=== PATIENT | male | born 1985 | race Caucasian/White ===

== ENCOUNTER 2024-03-04 04:29 | Observation (INO) | payer BC, SELFPAY ==
[2024-03-04] VITALS (29 sets, daily range): BP systolic 104–157; BP diastolic 54–97; PULSE 57–81; RESP 16–18; TEMP 36.7–37.1; O2SAT 91–99; BMI 32.3; BMI 31.7
--- NOTE | 2024-03-04 04:44 | CRLHL7_ITS ---
For Patients: As a result of the Century Cures Act, medical imaging exams and procedure reports are released immediately into your electronic medical record. You may view this report before your referring provider. If you have questions, please contact your health care provider. Indication: Ataxia, altered mental status. Technique: Noncontrast CT of head was performed. Comparison: None available. Findings: Brain parenchyma: Normal clifton-white matter differentiation. No acute intraparenchymal hemorrhage. No mass effect or midline shift. Extra-axial spaces: No extra-axial collection. Ventricular system: Unremarkable for age. Paranasal sinuses and mastoid air cells: Polyps versus mucous retention cysts within the maxillary sinuses. Otherwise clear. Orbits: Unremarkable. Bones: No calvarial fracture. Impression: No acute intracranial abnormality identified. Please note that all CT scans at this facility use dose modulation, iterative reconstruction, and/or weight-based dosing when appropriate to reduce radiation dose to as low as reasonably achievable. Dictated by Emiliana Rangel MD @ 03/04/2024 5:19:08 AM (Electronically Signed)
--- NOTE | 2024-03-04 05:08 | ED.GENADULT ---
HPI - General Adult General Chief complaint: Unspecified Complaint, Adult Stated complaint: jaw pain, feeling uncoordinated Time Seen by Provider: 03/04/24 04:32 Source: patient Mode of arrival: ambulatory Limitations: no limitations History of Present Illness HPI narrative: 39-year-old male presents the emergency department for evaluation of abnormal movements, jaw pain. Patient reports that he was diagnosed with a dental infection about 10 days ago, was prescribed amoxicillin for this and was referred to see a dentist. Review of records show that he was probably prescribed actually penicillin but he reports that he did take all of this. He completed the antibiotic without difficulty. He still had a little bit of pain in the right jaw but today at about 415 he had sudden onset of severe pain in the jaw area and has had difficulty moving his arms and legs since. This was just prior to arrival. His boss brings him into the ED. He says that it is difficult to move his arms and legs. They seem to be moving somewhat on their own. Reports some double vision on specific questioning. No recent fever, no new trauma. No cardiac, respiratory or GI changes. No history of prior neurological problems. Denies alcohol or drug intake in the last few days. Does admit to doing some speed over the weekend but has felt normal ever since until earlier this morning. He has a history of vitiligo but no other autoimmune disease. No history of hypothyroidism. No prior history of similar symptoms. Denies difficulty with speech or thinking. Still has the right jaw pain. States that his past medical history is benign, no inter long-term health problems. No prescription medications, allergy to clindamycin. ROS is notable for the neurological changes and HEENT symptoms as described above, otherwise denies times 12 systems. Related Data Home Medications ?Medication ?Instructions ?Recorded ?Confirmed No Known Home Medications 03/04/24 03/04/24 Allergies Allergy/AdvReac Type Severity Reaction Status Date / Time clindamycin Allergy Unknown Verified 03/04/24 04:44 [facility] Medical History Bipolar II disorder ?F31.81 - Bipolar II disorder (ICD-10) Social History Smoking Status: Current every day smoker What tobacco products do you use: cigarettes Smoking packs per day: 0.3 Smoking cigarettes per day: 6.0 Second hand tobacco smoke exposure: No How often do you have a drink containing alcohol: never AUDIT-C Alcohol total score: 0 Non-prescribed substance use: other Non-prescribed substance use details: Speed service: No Exam Const: Vital Signs, click to edit/add: Vital Signs - 24 hr 03/04/24 04:39 03/04/24 05:45 03/04/24 05:46 Temperature 98.1 F Pulse Rate 73 69 Pulse Rate [Left P ulse Oximeter] 78 Respiratory Rate 16 Blood Pressure 148/84 H Blood Pressure [Ri ght Upper Arm] 136/97 H Pulse Oximetry 98 98 Oxygen Delivery Me od Room Air 03/04/24 05:51 03/04/24 06:00 03/04/24 06:02 Temperature Pulse Rate 76 77 77 Pulse Rate [Left P ulse Oximeter] Respiratory Rate Blood Pressure 147/82 H 131/80 Blood Pressure [Ri ght Upper Arm] Pulse Oximetry 95 95 96 Oxygen Delivery Me thod 03/04/24 06:12 03/04/24 06:17 03/04/24 06:23 Temperature Pulse Rate 76 77 81 Pulse Rate [Left P ulse Oximeter] Respiratory Rate Blood Pressure 134/82 132/93 H Blood Pressure [Ri ght Upper Arm] Pulse Oximetry 98 97 98 Oxygen Delivery Me thod 03/04/24 06:30 03/04/24 06:32 03/04/24 06:42 Temperature Pulse Rate 74 79 Pulse Rate [Left P ulse Oximeter] Respiratory Rate Blood Pressure 130/54 L 134/64 Blood Pressure [Ri ght Upper Arm] Pulse Oximetry 96 97 Oxygen Delivery Me thod 03/04/24 06:45 03/04/24 06:52 03/04/24 07:00 Temperature Pulse Rate 69 65 66 Pulse Rate [Left P ulse Oximeter] Respiratory Rate Blood Pressure 120/73 Blood Pressure [Ri ght Upper Arm] Pulse Oximetry 96 94 97 Oxygen Delivery Me thod 03/04/24 07:02 03/04/24 07:12 03/04/24 07:15 Temperature Pulse Rate 65 68 67 Pulse Rate [Left P ulse Oximeter] Respiratory Rate Blood Pressure 127/75 104/73 Blood Pressure [Ri ght Upper Arm] Pulse Oximetry 96 97 96 Oxygen Delivery Me thod 03/04/24 07:22 03/04/24 07:30 Temperature Pulse Rate 68 69 Pulse Rate [Left P ulse Oximeter] Respiratory Rate Blood Pressure 157/74 H Blood Pressure [Ri ght Upper Arm] Pulse Oximetry 98 97 Oxygen Delivery In thod Documenting provider has reviewed patient's vital signs: yes Common normals: oriented x3 Other: Mildly anxious but appropriate. Oriented to person place and situation well. Appears well nourished and well hydrated, not intoxicated. HENMT: Common normals: normocephalic and head/scalp atraumatic Head and scalp: normocephalic and atraumatic Face and sinus: normal facial exam Other: Poor dentition with several missing teeth but no obvious signs of large abscess, broken tooth in the area of question. No unusual drainage. Can open and close the jaw normally with no trismus. Posterior palate normal in appearance, tonsillar pillars normal with no exudate or drainage. Normal tongue and do the mucosa Eye: Other: Pupils are size constricted bilaterally but they do react and accommodate to light. Normal extraocular movements. Neck & C-Spine: Common normals: full ROM and no lymphadenopathy Resp: Common normals: normal respiratory effort, no use of accessory muscles and clear to auscultation bilaterally Effort & inspection: able to speak in complete sentences Auscultation: clear to auscultation bilaterally Cardio: Common normals: regular rate, regular rhythm, S1 normal heart sound, S2 normal heart sound and no murmurs Rate: regular rate Rhythm: regular rhythm Heart sounds: S1 normal and S2 normal GI: Common normals: Normal to inspection, nondistended, normoactive bowel sounds present, soft to palpation, non-tender, no hepatosplenomegaly and no masses Palpation: soft and no hepatosplenomegaly Extremity: Common normals: normal to inspection and normal capillary refill Neuro: Common normals: oriented x3 and CN's II-XII intact bilaterally Other: Ataxic movements of both upper and lower extremities, symmetric bilaterally. Some non intentional movement of the upper extremities but not of the lower. There is also some ataxic movement of the face but not spontaneous, just when he tries to make purposeful movement. With some effort, he can over ride this and perform tasks on demand but with poor strength due to return of ataxic movements frequently this does seem amplified in the lower extremities compared to the upper. Psych: Common normals: speech normal Appearance: grossly normal Speech: normal speech Thought content: normal thought content Attention/concentration: attention grossly intact Memory/cognition: memory grossly intact Insight: insight good Judgement: judgment good Skin: Narrative: Vitiligo but no open sores or wounds. Vitiligo does concentrate on the hands. Course Course ED Course: 39-year-old male with sudden onset of bilateral upper and lower extremity ataxia, also facial, just prior to arrival. Very unusual presentation, concerning for small stroke. Recent dental infection, uncertain of clinical significance but is having some jaw pain with this. Will start with the urgent head CT to look for bleeds, mass or a signs of trauma. Urgent Neuro consult. Place peripheral IV. Typical labs, await findings. Reevaluation(s) Time of Reevaluation #1: 05:24 Reevaluation #1: Spoke with Dr. Francisco from Neurology. He shares my concern that there seems to be something unusual going on here. He is recommended that we get a CT angiogram. I will have the images pushed to [employer]. He will review these and then call back with further recommendations. We are in window for thrombolytics at this is indicated. Patient has had no change in symptoms thus far. Time of Reevaluation #2: 06:21 Reevaluation #2: I last checked on the patient about 40 minutes ago, and at that time his symptoms were fairly stable. I spoke with Neurology again and he recommended a telehealth assessment. When I went back into the patient's room to tell him about what to expect with this, he reported to me that he was already starting to feel better and this had just started happening within the last few minutes. His speech is still a little strained and slightly dysarthric. But he is noticing that there is now some tingling in the left leg but he has better movement. The right leg and hand seem harder to move than baseline but much improved from earlier and the spontaneous movements have ceased. Telehealth assessment was performed. Visual ch were normal, movement was still a little difficult but no obvious pronator drift. Strength in the lower legs much improved compared to initial assessment. I spoke with Neurology than on the phone following the telehealth exam, he is recommending an MRI with and without contrast of the head and neck. He is uncertain at this time if the patient has had a stroke or if this is more related to a drug event. He is not recommending any thrombolytics at this time. I will give aspirin 325 p.o. x1. Time of Reevaluation #3: 07:38 Reevaluation #3: Patient accepted for admission to observation from day hospitalist. Patient will receive MRI with and without contrast per neurology request. Hospitalist will then touch base with Neurology team on further plan. Patient continues to have improvement of neurological changes, stable vitals. Vital Signs Vital signs: Initial Vital Signs Temperature 98.1 F 03/04/24 04:39 Temperature Source Temporal Artery Scan 03/04/24 04:39 Pulse Rate 78 03/04/24 04:39 Pulse Rhythm Regular 03/04/24 04:39 Respiratory Rate 16 03/04/24 04:39 Blood Pressure 136/97 H 03/04/24 04:39 Blood Pressure Mean 110 H 03/04/24 04:39 Blood Pressure Position Semi-Fowlers 03/04/24 04:39 Pulse Oximetry 98 03/04/24 04:39 Oxygen Delivery Method Room Air 03/04/24 04:39 Vital Signs Temperature 98.1 F 03/04/24 04:39 Pulse Rate 78 03/04/24 04:39 Respiratory Rate 16 03/04/24 04:39 Blood Pressure 136/97 H 03/04/24 04:39 Pulse Oximetry 98 03/04/24 04:39 Oxygen Delivery Method Room Air 03/04/24 04:39 Temperature 98.1 F 03/04/24 04:39 Pulse Rate 69 03/04/24 07:30 Respiratory Rate 16 03/04/24 04:39 Blood Pressure 157/74 H 03/04/24 07:22 Pulse Oximetry 97 03/04/24 07:30 Oxygen Delivery Method Room Air 03/04/24 04:39 Medications Administered Medications: Discontinued Medications Generic Name Dose Route Start Last Admin Trade Name Freq PRN Reason Stop Dose Admin Aspirin 324 mg 03/04/24 06:24 03/04/24 06:43 Aspirin 81 Mg Tab.Chew PO 03/04/24 06:25 324 mg ONCE ONE Administration Sodium Chloride 1,000 mls @ 1,000 mls/hr 03/04/24 05:04 03/04/24 06:43 0.9 % Sodium Chloride 1000 Ml IV 03/04/24 06:03 1,000 mls/hr .Q1H LORETTA Administration Medical Decision Making Lab Data Lab results reviewed: Yes I reviewed the patient's lab results Lab results narrative: Labs overall very reassuring. Not surprised by the amphetamines and methamphetamines in his urine which he did previously admitted to. Labs: Lab Results 03/04/24 03/04/24 Range/Units 05:10 07:20 WBC 9.66 (4.50-11.00) K/uL RBC 5.11 (4.30-5.90) m/uL Hgb 15.2 (13.5-17.5) gm/dL Hct 43.2 (37.0-53.0) % MCV 85 (80-100) fL MCH 30 (26-34) pg MCHC 35 (32-36) gm/dL RDW Coeff of Domenica 13.1 (11.5-15.5) % Plt Count 409 (140-440) K/uL Neut % (Auto) 43.1 (42.0-72.0) % Lymph % (Auto) 44.3 H (20-44) % [place] % (Auto) 9.0 (0.0-11.0) % Eos % (Auto) 2.5 (0.0-7.0) % Baso % (Auto) 1.0 (0.0-3.0) % Neut # (Auto) 4.16 (1.7-7.0) K/uL Lymph # (Auto) 4.30 H (0.90-2.90) K/uL [place] # (Auto) 0.90 (0.00-0.90) K/UL Eos # (Auto) 0.24 (0.00-0.50) K/uL Baso # (Auto) 0.10 (0.00-0.30) K/uL Abs Immat Gran (auto) 0.01 (0.00-0.30) K/uL Imm/Tot Granulo (auto) 0.1 % Sodium 136 (135-149) mmol/L Potassium 3.4 L (3.6-5.1) mmol/L Chloride 105 (96-114) mmol/L Carbon Dioxide 17 L (20-32) mmol/L Anion Gap 14 (7-15) mEq/L BUN 15 (5-24) mg/dL Creatinine 0.6 (0.5-1.5) mg/dL Estimated Creat Clear 168.98 Estimated GFR 125 ml/min Glucose 98 (60-115) mg/dL Lactate 3.8 H (0.5-1.9) mmol/L Calcium 10.0 (8.4-10.6) mg/dL Total Bilirubin 0.7 (0.1-1.5) mg/dL AST 39 H (12-35) U/L ALT 40 (4-50) U/L Alkaline Phosphatase 63 (40-150) U/L Ammonia 9.0 L (13.1-30.0) umol/L C-Reactive Protein < 0.5 L (0.5-1.0) mg/dL Total Protein 7.9 (6.0-8.3) g/dL Albumin 5.0 (3.3-5.0) g/dL Procalcitonin 0.05 (<0.50) ng/mL Urine Color Yellow (Yellow) Urine Appearance Clear (Clear) Urine pH 7.0 (5.0-8.5) Ur Specific [place] 1.010 (1.000-1.030) Urine Protein Negative (Negative) Urine Glucose (UA) Negative (Negative) Urine Ketones Negative (Negative) Urine Blood Negative (Negative) Urine Nitrite Negative (Negative) Urine Bilirubin Negative (Negative) Urine Urobilinogen 0.2 (0.2-1.0) Ur Leukocyte Esterase Negative (Negative) Urine Opiates Screen Negative (Negative) Ur Oxycodone Screen Negative (Negative) Urine Methadone Screen Negative (Negative) Ur Barbiturates Screen Negative (Negative) U Tricyclic Antidepress Negative (Negative) Ur Phencyclidine Scrn Negative (Negative) Ur Amphetamines Screen POSITIVE A (Negative) U Methamphetamines Scrn POSITIVE A (Negative) U Benzodiazepines Scrn Negative (Negative) Urine Cocaine Screen Negative (Negative) U Marijuana (THC) Screen Negative (Negative) Ur Drug Screen Comment See Note Ethyl Alcohol < 0.01 L (0.01-0.03) % Imaging Data CT scan - head: Attestation: I have reviewed the pertinent imaging results. My impression: No bleed, mass or skull fracture. Normal head CT Radiologist's impression: Impression: No acute intracranial abnormality identified. Please note that all CT scans at this facility use dose modulation, iterative reconstruction, and/or weight-based dosing when appropriate to reduce radiation dose to as low as reasonably achievable. Dictated by Emiliana Rangel MD @ 03/04/2024 5:19:[address] angio head and neck: Attestation: I have reviewed the pertinent imaging results. Radiologist's impression: Findings CTA Neck: No hemodynamically significant stenosis, occlusion or dissection. CTA Head: No hemodynamically significant large vessel stenosis or occlusion. No aneurysm. Discharge Plan Discharge Clinical Impression: Cerebrovascular accident (CVA) involving posterior circulation Patient Disposition: Admitted As Observation Condition: Stable
[2024-03-04 05:19] LABS: Lactate* 3.8 mmol/L (0.5-1.9)
[2024-03-04 05:20] LABS: Eosinophils Absolute Auto 0.24 K/uL (0.00-0.50); Eosinophils Percent Auto 2.5 % (0.0-7.0); Hematocrit 43.2 % (37.0-53.0); Hemoglobin* 15.2 gm/dL (13.5-17.5); Immature Granulocytes Abs Auto 0.01 K/uL (0.00-0.30); Immature Granulocytes Pct Auto 0.1 %; Lymphocytes Percent Auto 44.3 % (20-44); Mean Corpuscular HGB Conc 35 gm/dL (32-36); Mean Corpuscular Hemoglobin 30 pg (26-34); Mean Corpuscular Volume 85 fL (80-100); Neutrophils Absolute Auto 4.16 K/uL (1.7-7.0); Neutrophils Percent Auto 43.1 % (42.0-72.0); Platelet Count* 409 K/uL (140-440); RDW Coefficient of Variation % 13.1 % (11.5-15.5); Red Blood Count 5.11 m/uL (4.30-5.90); White Blood Count* 9.66 K/uL (4.50-11.00)
[2024-03-04 05:21] LABS: Slide Review Reflex No
--- NOTE | 2024-03-04 05:25 | CRLHL7_ITS ---
For Patients: As a result of the Century Cures Act, medical imaging exams and procedure reports are released immediately into your electronic medical record. You may view this report before your referring provider. If you have questions, please contact your health care provider. CLINICAL HISTORY: Ataxia. TECHNIQUE: Standard helical CT image acquisition through the head following the administration of intravenous contrast was performed. 3D and MIP reconstructions were performed at a separate workstation and permanently archived. COMPARISON: None available. FINDINGS: No intracranial proximal large vessel occlusion or flow-limiting luminal stenosis. No evidence of cerebral aneurysm. No findings to suggest an arterial venous shunting lesion. The major dural venous sinuses and deep venous system are patent. IMPRESSION: No intracranial proximal large vessel occlusion, flow-limiting luminal stenosis, or cerebral aneurysm. Please note that all CT scans at this facility use dose modulation, iterative reconstruction, and/or weight-based dosing when appropriate to reduce radiation dose to as low as reasonably achievable. Dictated by Spencer Gonzalez MD @ 03/04/2024 3:21:13 PM (Electronically Signed)
--- OUTSIDE RECORDS SUMMARY | 2024-03-04 05:26 | XMS_ITS ---
Author Organization [facility] Address [address] [place] [address] Care Team Providers Care Senior Software Development Engineer Name Role Phone Unavailable Unavailable Unavailable Surgery Details Not on file Complications Check Surgery Details section. Procedure Estimated Blood Loss Check Surgery Details section. Procedure Findings Check Surgery Details section. Procedure Specimens Taken Check Surgery Details section.
--- OUTSIDE RECORDS SUMMARY | 2024-03-04 05:26 | XMS_ITS | Clinical Summary ---
Author Organization [facility] [place], [place] [address] Care Team Providers Care Swatch Paster Name Role Phone Ken Richardson MD Primary Care Provider Allergies Active Allergy Reactions Criticality Noted Date Comments Clindamycin Diarrhea Medium 09/04/2006 Medications Medication Sig Dispensed Refills Start Date End Date Status cyclobenzaprine (FLEXERIL) 10 mg tabletIndications:S pasm 1/2 to 1 tab at bedtime for muscle spasms 30 Tablet 11 07/31/2021 Active penicillin v potassium (PEN-VEE K) 500 mg tabletIndications:P ain, dental Take 1 Tablet (500 mg) by mouth four times daily before meals and at bedtime for 10 days. 40 Tablet 02/16/2024 02/26/2024 Active Problems Problem Noted Date Diagnosed Date Bipolar II disorder 03/15/2022 Tobacco use disorder 09/07/2008 Encounters Date Type Department Care Team Description 02/16/2024 4:20 AM CDT - 02/16/2024 4:41 AM CDT Emergency [facility] [address] [place] [address] Chris Duran MD Pain, dental (Primary Dx) Discharge Disposition: Home Self Care 02/16/2024 Travel from Last 3 Months Immunizations Name Administration Dates Next Due COVID-19 VACCINE SPIKEVAX (M ODERNA 50MCG/0.5ML) 12YO+ PFS 05/10/2023 COVID-19 vaccine (Moderna 10 0mcg/0.5mL) PF, MDV 11/10/2020,09/29/2020 DTaP 01/28/1989,08/21/1985 HIB HbOC (HibTITER) 02/25/1986 Influenza, IIV4 05/10/2023,03/15/2022 MMR 10/08/1996,04/30/1985 Oral Polio Vaccine 01/28/1989,08/21/1985 Pneumococcal Conj 20-valent (Prevnar 20) 022 Td (Age >=7 Years) 10/08/1996 Tdap 03/15/2022,11/09/2011,06/24/2004 Family History Medical History Relation Name Comments Good Health Brother Leukemia Daughter Good Health Father Cancer Maternal Grandfather bone ca ncer Good Health Mother Diabetes Paternal Grandfather Good Health Sister 1 Good Health Sister 2 Relation Name Status Comments Brother Daughter Alive Father Alive Maternal Grandfather Mother Alive Paternal Grandfather Sister 1 Sister 2 Social History Tobacco Use Types Packs/Day Years Used Date Smoking Tobacco: Every Day Cigarettes 0.3 10 Smokeless Tobacco: Never Tobacco Cessation:Ready to Q uit: Not Asked; Counseling Given: Not Answered Comments:ATQ. 09/2020: Smokes 1/2-1 ppd. Alcohol Use Standard Drinks/Week Comments Not Currently 0 (1 standard drink = 0.6 oz pur e alcohol) PHQ-2 Answer Date Recorded PHQ-2 TOTAL SCORE 0 10/02/2022 Social Connections Answer Date Recorded Frequency of Communication with Friends and Fami ly Not on file 10/22/2022 Financial Resource Strain Answer Date R ecorded Difficulty of Paying Living Expenses 3 10/18/2021 Difficulty of Paying Living Expenses Not on file 10/18/2021 Food Insecurity Answer Date Recorded Worried About Running Out of Food in the Last Ye ar 1 10/18/2021 Transportation Needs Answer Date Record ed Lack of Transportation (Medical) 1 10/18/2021 Housing Stability Answer Date Recorded Unable to Pay for Housing in the Last Year 1 10/18/2021 Sex and Gender Information Value Date Recorded Sex Assigned at Not on file Gender Identity Not on file Sexual Orientation Not on file Obstetrics History Last Filed Vital Signs Vital Sign Reading Time Taken Comments Blood Pressure 144/100 02/16/2024 4:20 AM CDT Pulse 90 02/16/2024 4:20 AM CDT Temperature 36.7 ??C (98.1 ??F) 02/16/2024 4:20 AM CD T Respiratory Rate 18 02/16/2024 4:20 AM CDT Oxygen Saturation 98% 02/16/2024 4:20 AM CDT Inhaled Oxygen Concentration - - Weight 102.1 kg (225 lb) 02/16/2024 4:19 AM CDT Height 177.8 cm (5' 10) 02/16/2024 4:19 AM CDT Body Mass Index 32.28 02/16/2024 4:19 AM CDT Plan of Treatment Health Maintenance Due Date Last Done Comments Depression screening for age 12+ 10/03/2023 10/02/2022, 03/20/2021, 11/07/2020, Additional history exists Influenza for age 9-49 02/23/2024 05/10/2023, 2021 BMI (ht and wt on same day) for age 18+ 06/06/2024 06/06/2023, 03/06/2023, 07/31/2021, Additional history exists Lipids for age 35-44 01/21/2025 01/22/2020, 05/06/2006, 05/06/2006 Tetanus booster 03/15/2032 03/15/2022, 10/22, 06/24/2004, Additional history exists HIV for age 15-65 Completed 01/22/2020 Hepatitis C screening for ag e 18-79 Completed 01/22/2020 Pneumococcal series for age 6-64 Completed 03/15/20 Tdap Completed 03/15/2022, 10/22, 06/24/2004 COVID-19 vaccine series Completed 05/10/20, 11/10/2020, 09/29/2020 Procedures Procedure Name Priority Date/Time Associated Diagnosis Comments ANTI HIV 1/2 Routine 01/22/2020 1:54 PM CDT Exposure to bloodborne pathogen HCV RNA QUANT Routine 01/22/2020 1:54 PM CDT Exposure to bloodborne pathogen LIPID PANEL W REFLEX MEASURED LDL Routine 01/22/2020 1:54 PM CDT Lipid screening from Last 3 Months or Most Recently Relevant to Health Maintenance Results * (ABNORMAL) LIPID PANEL W REFLEX MEASURED LDL (01/22/2020 1:54 PM CDT) CHOLESTEROL,TOTAL 256(H) 100 - 199 mg/dL 01/22/2020 2:31 PM CDT [facility] TRIGLYCERIDES 320(H) <150 mg/dL 01/22/2020 2:31 PM CDT [facility] HDL CHOLESTEROL 49 >40 mg/dL 0 2:31 PM CDT [facility] NON-HDL CHOLESTEROL 207(H) <145 mg/dl 01/22/2020 2:31 PM CDT [facility] CHOL/HDL RATIO 5.22(H) <4.50 01/22/2020 2:31 PM CDT [facility] LDL CHOLESTEROL 143(H) <=130 mg/dL 01/22/2020 2:31 PM CDT [facility] PROVIDER ORDERED STATUS RANDOM 01/22/2020 2:31 PM CDT [facility] Blood BLOOD SPECIMEN / Unknown Venipuncture / Unknown 01/22/2020 1:54 PM CDT 01/22/2020 1:54 PM CDT Marla Hodges MD CHEMISTRY [facility] [address] [place] [address] * HCV RNA QUANT (01/22/2020 1:54 PM CDT) HCV RNA RT-PCR HCV RNA not detected HCV RNA not detected IU/mL 01/28/2020 1:21 PM CDT [facility] Blood BLOOD SPECIMEN / Unknown Venipuncture / Unknown 01/22/2020 1:54 PM CDT 01/22/2020 1:54 PM CDT Narrative [facility] - 01/28/2020 1:21 PM CDT Method: ??Kayla HCV Test Marla Hodges MD SEND OUTS [facility] [address] [place] [address], [place] * ANTI HIV 1/2 (01/22/2020 1:54 PM CDT) HIV-1/HIV-2 ANTIBODY Non-Reacti ve Non-Reacti ve 01/22/2020 8:46 PM CDT [facility] Comment:HIV-1 p24 and HIV-1/ HIV-2 Ab not detected. Blood BLOOD SPECIMEN / Unknown Venipuncture / Unknown 01/22/2020 1:54 PM CDT 01/22/2020 1:54 PM CDT Marla Hodges MD SEND OUTS [facility] [address] [place] [address], from Last 3 Months or Most Recently Relevant to Health Maintenance Care Teams Swatch Paster Relationship Specialty Start Date End Date Ken Richardson MD [address] [facility] [place] [address] PCP - General Family Practice 06/30/20
--- OUTSIDE RECORDS SUMMARY | 2024-03-04 05:26 | XMS_ITS | Referral Summary ---
Author Organization [facility] Address [address] [place] [address] Care Team Providers Care Sales Porter Name Role Phone Bello Bejarano M.D. Primary Care P talisha Source Comments Patient records contain information from all sites at [facility]. For routine questions regarding patient records, call [phone] during business hours, M-F 8:00 AM - 5:00 PM Central Time. Record requests for emergency care only can be directed to [phone] at any time.[facility] Allergies No known active allergies Medications Medication Sig Dispensed Refills Start Date End Date Status cyclobenzaprine (FLEXERIL) 10 mg tabletIndications:Kasia n Low Back Unspecified Take 1 tablet (10 mg total) by mouth at bedtime as needed for muscle spasms. 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 60 capsule 08/19/2018 Active QUEtiapine (SEROquel) 25 mg tabletIndications:Bip olar II Disorder (HCC) Take 1 tablet (25 mg total) by mouth at bedtime. 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 No 04/18/2022 Within the last year, have y ou been humiliated or emotionally abused in other ways by your partner or ex-partner? No Within the last year, have y ou been kicked, hit, slapped, or otherwise physically hurt by your partner or ex-partner? No 04/18/2022 Within the last year, have y ou been raped or forced to have any kind of sexual activity by your partner or ex-partner? No 04/18/2022 Social Connection and Isolation Panel [NHANES] A nswer Date Recorded In a typical week, how many times do you talk on the phone with family, friends, or neighbors? Once a week 04/18/2022 How often do you get together with friends or re latives? Never 04/18/2022 How often do you attend muslim or buddhism serv ices? Never 04/18/2022 Do you belong to any clubs o r organizations such as muslim groups, unions, fraternal or athletic groups, or school groups? No 04/18/2022 How often do you attend meet ings of the clubs or organizations you belong to? Never 04/18/2022 Are you , , di vorced, , never , or living with a partner? 04/18/2022 AUDIT-C Answer Date Recorded Q1: How often do you have a drink containing alc ohol? Never 04/18/2022 Average Number of Drinks Not on file 022 Frequency of Binge Drinking Not on file 03/25 Overall Financial Resource Strain (CARDIA) Answe r Date Recorded How hard is it for you to pa y for the very basics like food, housing, medical care, and heating? Not very hard 05/23/2023 PHQ-2 Answer Date Recorded PHQ-2 Score 1 12/05/2018 [place] [facility] - Occupational Stress Questionnaire Answer Date Recorded Do you feel stress - tense, restless, nervous, or anxious, or unable to sleep at night because your mind is troubled all the time - these days? To some extent 04/18/2022 Exercise Vital Sign Answer Date Recorde d On average, how many days pe r week do you engage in moderate to strenuous exercise (like a brisk walk)? 2 days 05/23/2023 On average, how many minutes do you engage in exercise at this level? 10 min 05/23/2023 Hunger Vital Sign Answer Date Recorded Within the past 12 months, y ou worried that your food would run out before you got the money to buy more. Sometimes true Within the past 12 months, t he food you bought just didn't last and you didn't have money to get more. Never true PRAPARE - Transportation Answer Date Re corded In the past 12 months, has l ack of transportation kept you from medical appointments or from getting medications? No 04/26 In the past 12 months, has l ack of transportation kept you from meetings, work, or from getting things needed for daily living? No 05/23/2023 Nutrition Answer Date Recorded Nutrition: EVOO Fat Source No 05/23 On average, how many serving s of fruits and vegetables do you eat per day (serving size is equal to 1 cup or approximately the size of a tennis ball)? 5 or more 05/23/2023 Dental Answer Date Recorded Dental: Regular Dentist No 04/18/20 22 Employment Answer Date Recorded Employment status Employed and actively working without restrictions 05/23/2023 Housing Stability Answer Date Recorded What is your living situation today? I [address] [facility] [address] [place] live 05/23/2023 Education Answer Date Recorded What is the highest level of school you have completed or the highest degree you have received? GED or equivalent 07/2018 Sex and Gender Information Value Date Recorded Sex Assigned at Male 04/03/2022 8:42 AM CDT Gender Identity Male 08/19/2018 8:05 AM INTERNAL INVESTIGATOR Sexual Orientation Straight 08/19/2018 8: 05 AM INTERNAL INVESTIGATOR Last Filed Vital Signs Vital Sign Reading Time Taken Comments Blood Pressure 120/72 03/25/2019 8:42 AM CDT Pulse 76 03/25/2019 8:42 AM CDT Temperature 36.3 ??C (97.3 ??F) 03/25/2019 8:42 AM CD T Respiratory Rate 16 03/25/2019 8:42 AM CDT Oxygen Saturation - - Inhaled Oxygen Concentration - - Weight 91.6 kg (201 lb 15.1 oz) 03/25/2019 8:42 AM CDT Height 179 cm (5' 10.47) 08/19/2018 8:05 AM INTERNAL INVESTIGATOR Body Mass Index 28.59 08/19/2018 8:05 AM INTERNAL INVESTIGATOR Plan of Treatment Not on file Procedures Procedure Name Priority Date/Time Associated Diagnosis Comments LIPID PANEL, S Routine 05/14/2018 10:10 AM INTERNAL INVESTIGATOR Pain Chest from Last 3 Months or Most Recently Relevant to Health Maintenance Results * (ABNORMAL) Lipid Panel (05/14/2018 10:10 AM [facility]) Cholesterol, Total 251(H) mg/dL 05/14/2018 11:35 AM [facility] Comment: ----REFERENCE VALUE---- Desirable: < 200 Borderline high: 200 - 239 High: > or = 240 Triglycerides 327(H) mg/dL 05/14/2018 11:35 AM [facility] Comment: ----REFERENCE VALUE---- Normal: <150 Borderline high: 150-199 High: 200-499 Very high: > or =500 Cholesterol, HDL, S 58 >=40 mg/dL 05/14/2018 11:35 AM [facility] Calculated LDL 128 mg/dL 05/14/2018 11:35 AM [facility] Comment: ----REFERENCE VALUE---- Desirable: <100 Above Desirable: 100-129 Borderline high: 130-159 High: 160-189 Very high: > or =190 Cholesterol, Non-HDL, Calculated 193(H) mg/dL 05/14/2018 11:35 AM [facility] Comment: ----REFERENCE VALUE---- Desirable: <130 Above Desirable: 130-159 Borderline high: 160-189 High: 190-219 Very high: > or =220 Blood (Blood, Venous) 05/14/2018 10:10 AM INTERNAL INVESTIGATOR 05/14/2018 10:30 AM INTERNAL INVESTIGATOR Guicho Erickson M.D. LAB BLOOD ADD-ON [facility] [place] [address] [place] [address], [facility] from Last 3 Months or Most Recently Relevant to Health Maintenance Care Teams Sales Porter Relationship Specialty Start Date End Date Bello Bejarano M.B.B.S., M.D. [address] [place] [address] [place] [address] PCP - General Family Medicine 05/19/18
--- OUTSIDE RECORDS SUMMARY | 2024-03-04 05:26 | XMS_ITS | Clinical Summary ---
Author Organization [facility] Address [address] [place] [address] Care Team Providers Care Bus Analyst Name Role Phone Bello Bejarano M.D. Primary Care P talisha Source Comments Patient records contain information from all sites at [facility]. For routine questions regarding patient records, call [phone] during business hours, M-F 8:00 AM - 5:00 PM Central Time. Record requests for emergency care only can be directed to [phone] at any time.[facility] Allergies No known active allergies Medications [...] Back Unspecified 08/19/2018 Nicotine Dependence Unspecified 09/07/2008 Family History Medical History Relation Name Comments Arthritis Father Alcohol abuse Mother Bipolar disorder Sister Relation Name Status Comments Father Alive Mother Alive Sister Social History Tobacco Use Types Packs/Day Years [...] Never 04/18/2022 How often do you attend roman catholic or buddhism serv ices? Never 04/18/2022 Do you belong to any clubs o r organizations such as roman catholic groups, unions, fraternal or athletic groups, or [...] Answer Date Recorded PHQ-2 Score 1 12/05/2018 [facility] [place] [facility] - Occupational Stress [...] CDT Gender Identity Male 08/19/2018 8:05 AM PATTERN CHAIN BUILDER Sexual Orientation Straight 08/19/2018 8: 05 AM PATTERN CHAIN BUILDER Last Filed Vital Signs Vital Sign Reading [...] 179 cm (5' 10.47) 08/19/2018 8:05 AM PATTERN CHAIN BUILDER Body Mass Index 28.59 08/19/2018 8:05 AM PATTERN CHAIN BUILDER Plan of Treatment Health Maintenance Due Date Last Done Comments HIV Screening 1984 Hepatitis C Screening 1984 Hepatitis B Vaccines (1 of 3 - 19+ 3-dose series) 02/11/2003 Tobacco Cessation counseling 08/19/2019 08/19/2018 Depression Screening (Annual PHQ-2) 06/24/2023 Influenza Vaccine (#1) 2024 05/10/2023, 2021 Lipid (Cholesterol) Screening 01/21/2025 01/22/2020, 05/14/2018 DTaP,Tdap,and Td Vaccines (6 - Td or Tdap) 03/15/2032 03/15/2022, 11/09/2011, 06/24/2004, Additional history exists Pneumococcal vaccine (0-64 years) Completed 03/15/2022 COVID-19 Vaccine Completed 05/10/2023, , 09/29/2020 HPV Vaccines Aged Out No longer eligi ble based on patient's age to complete this topic Procedures Procedure Name Priority Date/Time Associated Diagnosis Comments LIPID PANEL, S Routine 05/14/2018 10:10 AM PATTERN CHAIN BUILDER Pain Chest from Last 3 Months or Most Recently Relevant to Health Maintenance Results * (ABNORMAL) Lipid Panel (05/14/2018 10:10 AM PATTERN CHAIN BUILDER) Cholesterol, Total 251(H) mg/dL 05/14/2018 11:35 AM PATTERN CHAIN BUILDER [facility] Comment: ----REFERENCE VALUE---- Desirable: < 200 Borderline high: 200 - 239 High: > or = 240 Triglycerides 327(H) mg/dL 05/14/2018 11:35 AM [facility] Comment: ----REFERENCE VALUE---- Normal: <150 Borderline high: 150-199 High: 200-499 Very high: > or =500 Cholesterol, HDL, S 58 >=40 mg/dL 05/14/2018 11:35 AM PATTERN CHAIN BUILDER [facility] Calculated LDL 128 mg/dL 05/14/2018 11:35 AM [facility] Comment: ----REFERENCE VALUE---- Desirable: <100 Above Desirable: 100-129 Borderline high: 130-159 High: 160-189 Very high: > or =190 Cholesterol, Non-HDL, Calculated 193(H) mg/dL 05/14/2018 11:35 AM [facility] Comment: ----REFERENCE VALUE---- Desirable: <130 Above Desirable: 130-159 Borderline high: 160-189 High: 190-219 Very high: > or =220 Blood (Blood, Venous) 05/14/2018 10:10 AM PATTERN CHAIN BUILDER 05/14/2018 10:30 AM PATTERN CHAIN BUILDER Guicho Erickson M.D. LAB BLOOD ADD-ON [facility] [address] from Last 3 Months or Most Recently Relevant to Health Maintenance Care Teams Bus Analyst Relationship Specialty Start Date End Date Bello Bejarano M.B.BCaterina Cordova [address] [place] [address] Cori Chávez, [place] [id number] PCP - General Family Medicine 05/19/18
--- NOTE | 2024-03-04 05:28 | CRLHL7_ITS ---
For Patients: As a result of the Century Cures Act, medical imaging exams and procedure reports are released immediately into your electronic medical record. You may view this report before your referring provider. If you have questions, please contact your health care provider. CLINICAL HISTORY: Ataxia. TECHNIQUE: Standard helical CT image acquisition through the neck was performed after intravenous contrast bolus enhancement. 3D and MIP reconstructions were performed at a separate workstation and permanently archived. COMPARISON: None available. FINDINGS: The origins of the great vessels from the aortic arch are patent. The common carotid arteries are patent. No significant luminal stenoses of the proximal ICAs by NASCET criteria. The more distal cervical segments of the ICAs are patent. The origins and cervical segments of the vertebral arteries are patent. IMPRESSION: Patent cervical arterial vasculature without hemodynamically significant luminal stenosis. Please note that all CT scans at this facility use dose modulation, iterative reconstruction, and/or weight-based dosing when appropriate to reduce radiation dose to as low as reasonably achievable. Dictated by Spencer Gonzalez MD @ 03/04/2024 3:13:39 PM (Electronically Signed)
[2024-03-04 05:35] LABS: Chloride* 105 mmol/L (96-114)
[2024-03-04 05:36] LABS: Potassium* 3.4 mmol/L (3.6-5.1); Sodium* 136 mmol/L (135-149)
[2024-03-04 05:38] LABS: Bilirubin Total* 0.7 mg/dL (0.1-1.5); Creatinine* 0.6 mg/dL (0.5-1.5); Est. Creatinine Clearance* 168.98; Estimated Glomerular Filt Rate 125 ml/min
[2024-03-04 05:39] LABS: Alanine Aminotransferase* 40 U/L (4-50); Alkaline Phosphatase* 63 U/L (40-150); Anion Gap 14 mEq/L (7-15); Aspartate Amino Transferase* 39 U/L (12-35); Blood Urea Nitrogen* 15 mg/dL (5-24); Carbon Dioxide* 17 mmol/L (20-32); Glucose* 98 mg/dL (60-115); Total Protein* 7.9 g/dL (6.0-8.3)
[2024-03-04 05:50] LABS: C Reactive Protein* < 0.5 mg/dL (0.5-1.0); Ethanol* < 0.01 % (0.01-0.03)
[2024-03-04 05:56] LABS: Procalcitonin* 0.05 ng/mL (<0.50)
--- NOTE | 2024-03-04 06:20 | CRLHL7_ITS ---
For Patients: As a result of the Century Cures Act, medical imaging exams and procedure reports are released immediately into your electronic medical record. You may view this report before your referring provider. If you have questions, please contact your health care provider. INDICATION: Ataxia. TECHNIQUE: Multiplanar multisequence noncontrast MR images of the brain. COMPARISON: CT brain 03/04/2024. FINDINGS: The ventricles and sulci are within normal limits for patient age. No mass effect or midline shift. Few punctate FLAIR hyperintensities in the supratentorial white matter, nonspecific. No intracranial hemorrhage or pathologic extra-axial fluid collection. No diffusion restriction to suggest acute infarction. The major arterial flow voids at the skull base are preserved. The globes are symmetric. Small maxillary sinus retention cysts or polyps. The mastoid air cells are clear. IMPRESSION: 1. No acute intracranial abnormality. 2. Few punctate FLAIR hyperintensities in the supratentorial white matter are nonspecific, though most typical for sequelae of migraine headaches or minimal chronic microvascular ischemic changes. Dictated by Gio Nelson MD @ 03/04/2024 8:58:23 AM (Electronically Signed)
[2024-03-04] MEDS: 0.9 % SODIUM CHLORIDE 1000 ml 1,000 ML IV (06:43)
[2024-03-04] MEDS: ASPIRIN 81 MG TAB.CHEW 324 MG PO (06:43)
[2024-03-04 07:33] LABS: Appearance Urine Clear (Clear); Bilirubin Urine Negative (Negative); Blood Urine Negative (Negative); Color Urine Yellow (Yellow); Glucose Urine Negative (Negative); Ketones Urine Negative (Negative); Leukocyte Esterase Urine Negative (Negative); Nitrite Urine Negative (Negative); Protein Urine Negative (Negative); Urobilinogen Urine 0.2 (0.2-1.0)
[2024-03-04 07:41] LABS: Amphetamine Screen Urine POSITIVE (Negative); Barbiturate Screen Urine Negative (Negative); Benzodiazepines Screen Urine Negative (Negative); Cannabinoid Screen Urine Negative (Negative); Cocaine Screen Urine Negative (Negative); Methadone Screen Urine Negative (Negative); Methamphetamines Screen Urine POSITIVE (Negative); Opiate Screen Urine Negative (Negative); Oxycodone Screen Urine Negative (Negative); Phencyclidine Screen Urine Negative (Negative); Tricyclic Antidepressant Urine Negative (Negative)
--- NOTE | 2024-03-04 10:13 | P.IMHP_ITS ---
Hospitalist- H&P: HPI History of Present Illness Date Seen: 03/04/24 Chief complaint: jaw pain, feeling uncoordinated Narrative: Chato Valdivia is a 39 year old male past medical history bipolar disorder, tobacco use disorder, history of methamphetamine and cocaine use is admitted to medical floor from the ED for further evaluation dysarthric and ataxic concerns. Patient was working overnight and around 415 this morning noted increasing right jaw pain along with difficulty moving his arms and legs. He was brought to the ED by his boss. ED provider noted some ataxic movements. Along with some dysarthria. No slurring of speech but slow to find words. Jaw pain has been present for approximately 10 days in the setting of a recent dental infection for which he was prescribed amoxicillin along with a referral to see is dentist. Patient did admit to ED provider that he has been using speed recently and has not been sleeping as he has been taking care of his toddler children at home while his is not feeling well. CT/CTA head neck negative for acute findings, no CVA noted. ED provider discussed with tele Neurology, recommending admission for further workup including MRI brain. On arrival to the floor, patient is tired, sleeping. Easily awakens. Denies headache or dizziness. Has been afebrile. Denies nausea or recent vomiting. Denies chest pain or shortness of breath. Admits to methamphetamine use with the past 20 years. States he has had similar episodes like this morning over the course of time however this was more intense and lasted longer. Review of Systems Narrative: REVIEW OF SYSTEMS: Complete review of systems performed and negative unless otherwise stated in HPI or below. [facility] Medical History (Updated 03/04/24 @ 16:05 by Blessing Edwards PA-C) Methamphetamine use ?F15.10 - Other stimulant abuse, uncomplicated (ICD-10) Bipolar disorder ?F31.9 - Bipolar disorder, unspecified (ICD-10) Tobacco use ?Z72.0 - Tobacco use (ICD-10) Bipolar II disorder ?F31.81 - Bipolar II disorder (ICD-10) Social History What is your current living situation?: I presently have a place to live Problems where you live: no known problems Problems where you live details: NA In the past 12 months, utilities in danger of being shut off: no In past 12 months, lack of transportation kept you from medical appts, meetings, work, or getting things needed for daily living: no In the past 12 mos, have been you worried that your food would run out before you had money to buy more?: never true In the past 12 mos, the food you bought just didn't last and you didn't have money to buy more?: never true Highest level of school completed/degree received: some college, no degree Smoking Status: Current every day smoker What tobacco products do you use: cigarettes Smoking packs per day: 0.5 Smoking cigarettes per day: 10.0 Second hand tobacco smoke exposure: No How often do you have a drink containing alcohol: never AUDIT-C Alcohol total score: 0 Non-prescribed substance use: amphetamines/methamphetamines Caffeine: Yes How often does anyone, including family, friends and others, physically hurt you : never How often does anyone, including family, friends and others, insult or talk down to you: never How often does anyone, including family, friends and others, threaten you with harm: never How often does anyone, including family, friends and others, scream or curse at you: never service: No Meds Home Medications and Allergies Home Medications ?Medication ?Instructions ?Recorded ?Confirmed ?Type No Known Home Medications 03/04/24 03/04/24 History Allergies Allergy/AdvReac Type Severity Reaction Status Date / Time clindamycin Allergy Unknown Verified 03/04/24 04:44 Exam Narrative: Exam Narrative: PHYSICAL EXAM General: Appropriately conversant, appears tired otherwise in ED HEENT: Normocephalic, atraumatic, sclera white, pinpoint pupils, EOMI, oral mucosa moist Cardiovascular: RRR, S1S2. No pitting edema Pulmonary: CTA bilaterally without rhonchi, rales, expiratory wheezes. No dyspnea Abdominal: Soft, nondistended, NTTP Neurological: Alert, answering questions appropriately, cranial nerves intact, no focal findings on exam, muscle strength equal bilaterally Extremities: No gross joint deformity or swelling. AROMI. Neurovascularly intact Skin: Warm, dry. Const: Vital Signs, click to edit/add: Vital Signs - 24 hr 03/04/24 04:39 03/04/24 05:45 03/04/24 05:46 Temperature 98.1 F Pulse Rate 73 69 Pulse Rate [Left P ulse Oximeter] 78 Pulse Rate [Pulse Oximeter] Respiratory Rate 16 Blood Pressure 148/84 H Blood Pressure [Ri ght Arm] Blood Pressure [Ri ght Upper Arm] 136/97 H Pulse Oximetry 98 98 [facility] 03/04/24 05:51 03/04/24 06:00 03/04/24 06:02 Temperature Pulse Rate 76 77 77 Pulse Rate [Left P ulse Oximeter] Pulse Rate [Pulse Oximeter] Respiratory Rate Blood Pressure 147/82 H 131/80 Blood Pressure [Ri ght Arm] Blood Pressure [Ri ght Upper Arm] Pulse Oximetry 95 95 96 [facility] 03/04/24 06:12 03/04/24 06:17 03/04/24 06:23 Temperature Pulse Rate 76 77 81 Pulse Rate [Left P ulse Oximeter] Pulse Rate [Pulse Oximeter] Respiratory Rate Blood Pressure 134/82 132/93 H Blood Pressure [Ri ght Arm] Blood Pressure [Ri ght Upper Arm] Pulse Oximetry 98 97 98 [facility] 03/04/24 06:30 03/04/24 06:32 03/04/24 06:42 Temperature Pulse Rate 74 79 Pulse Rate [Left P ulse Oximeter] Pulse Rate [Pulse Oximeter] Respiratory Rate Blood Pressure 130/54 L 134/64 Blood Pressure [Ri ght Arm] Blood Pressure [Ri ght Upper Arm] Pulse Oximetry 96 97 [facility] 03/04/24 06:45 03/04/24 06:52 03/04/24 07:00 Temperature Pulse Rate 69 65 66 Pulse Rate [Left P ulse Oximeter] Pulse Rate [Pulse Oximeter] Respiratory Rate Blood Pressure 120/73 Blood Pressure [Ri ght Arm] Blood Pressure [Ri ght Upper Arm] Pulse Oximetry 96 94 97 [facility] 03/04/24 07:02 03/04/24 07:12 03/04/24 07:15 Temperature Pulse Rate 65 68 67 Pulse Rate [Left P ulse Oximeter] Pulse Rate [Pulse Oximeter] Respiratory Rate Blood Pressure 127/75 104/73 Blood Pressure [Ri ght Arm] Blood Pressure [Ri ght Upper Arm] Pulse Oximetry 96 97 96 [facility] 03/04/24 07:22 03/04/24 07:30 03/04/24 07:32 Temperature Pulse Rate 68 69 67 Pulse Rate [Left P ulse Oximeter] Pulse Rate [Pulse Oximeter] Respiratory Rate Blood Pressure 157/74 H 137/90 H Blood Pressure [Ri ght Arm] Blood Pressure [Ri ght Upper Arm] Pulse Oximetry 98 97 96 Oxygen Delivery [facility] 03/04/24 07:42 03/04/24 07:45 03/04/24 07:52 Temperature Pulse Rate 60 74 74 Pulse Rate [Left P ulse Oximeter] Pulse Rate [Pulse Oximeter] Respiratory Rate Blood Pressure 129/73 131/74 Blood Pressure [Ri ght Arm] Blood Pressure [Ri ght Upper Arm] Pulse Oximetry 96 98 96 Oxygen Delivery [place] thod 03/04/24 08:00 03/04/24 08:02 03/04/24 08:39 Temperature 98.1 F Pulse Rate 58 L 57 L Pulse Rate [Left P ulse Oximeter] Pulse Rate [Pulse Oximeter] 74 Respiratory Rate 18 Blood Pressure 123/70 Blood Pressure [Ri ght Arm] 124/90 H Blood Pressure [Ri ght Upper Arm] Pulse Oximetry 91 93 98 [facility] Hospitalist - H&P: Result Labs Labs: Short CBC 03/04/24 Range/Units 05:10 WBC 9.66 (4.50-11.00) K/uL Hgb 15.2 (13.5-17.5) gm/dL Hct 43.2 (37.0-53.0) % Plt Count 409 (140-440) K/uL BMP 03/04/24 05:10 Sodium 136 Potassium 3.4 L Chloride 105 Carbon Dioxide 17 L BUN 15 Creatinine 0.6 Glucose 98 Calcium 10.0 Liver Function 03/04/24 Range/Units 05:10 Total Bilirubin 0.7 (0.1-1.5) mg/dL AST 39 H (12-35) U/L ALT 40 (4-50) U/L Alkaline Phosphatase 63 (40-150) U/L Albumin 5.0 (3.3-5.0) g/dL Urine 03/04/24 Range/Units 07:20 Urine Color Yellow (Yellow) Urine Appearance Clear (Clear) Urine pH 7.0 (5.0-8.5) Ur Specific Anderson 1.010 (1.000-1.030) Urine Protein Negative (Negative) Urine Glucose (UA) Negative (Negative) Imaging MRI - head: Attestation: I have reviewed the pertinent imaging results. Radiologist's impression: Multiplanar multisequence noncontrast MR images of the brain. COMPARISON: CT brain 03/04/2024. FINDINGS: The ventricles and sulci are within normal limits for patient age. No mass effect or midline shift. Few punctate FLAIR hyperintensities in the supratentorial white matter, nonspecific. No intracranial hemorrhage or pathologic extra-axial fluid collection. No diffusion restriction to suggest acute infarction. The major arterial flow voids at the skull base are preserved. The globes are symmetric. Small maxillary sinus retention cysts or polyps. The mastoid air cells are clear. IMPRESSION: 1. No acute intracranial abnormality. 2. Few punctate FLAIR hyperintensities in the supratentorial white matter are nonspecific, though most typical for sequelae of migraine headaches or minimal chronic microvascular ischemic changes. CTA neck: Attestation: I have reviewed the pertinent imaging results. Radiologist's impression: Standard helical CT image acquisition through the neck was performed after intravenous contrast bolus enhancement. 3D and MIP reconstructions were performed at a separate workstation and permanently archived. COMPARISON: None available. FINDINGS: The origins of the great vessels from the aortic arch are patent. The common carotid arteries are patent. No significant luminal stenoses of the proximal ICAs by NASCET criteria. The more distal cervical segments of the ICAs are patent. The origins and cervical segments of the vertebral arteries are patent. IMPRESSION: Patent cervical arterial vasculature without hemodynamically significant luminal stenosis. CTA head: Attestation: I have reviewed the pertinent imaging results. Radiologist's impression: No intracranial proximal large vessel occlusion or flow-limiting luminal stenosis. No evidence of cerebral aneurysm. No findings to suggest an arterial venous shunting lesion. The major dural venous sinuses and deep venous system are patent. IMPRESSION: No intracranial proximal large vessel occlusion, flow-limiting luminal stenosis, or cerebral aneurysm. CT head: Attestation: I have reviewed the pertinent imaging results. Radiologist's impression: Noncontrast CT of head was performed. Comparison: None available. Findings: Brain parenchyma: Normal clifton-white matter differentiation. No acute intraparenchymal hemorrhage. No mass effect or midline shift. Extra-axial spaces: No extra-axial collection. Ventricular system: Unremarkable for age. Paranasal sinuses and mastoid air cells: Polyps versus mucous retention cysts within the maxillary sinuses. Otherwise clear. Orbits: Unremarkable. Bones: No calvarial fracture. Impression: No acute intracranial abnormality identified. Assessment and Plan Assessment and plan (1) Ataxia: Problem comment: Resolved prior to arrival to the floor Evaluated by tele neurology, Dr. Marques - suspected to be possible seizure activity in setting of active methamphetamine use and lack of sleep. Possibly postictal fatigue. Not recommending starting any anti-seizure medications at this time. Will need outpatient EEG and neuro consult which can be set up by his PCP. No driving for 3 months, pending further workup. CK mildly elevated at 266 on arrival to ED, improved to 217 following IVF, just outside of mild rhabdomyolysis Lactate 3.8 on arrival to ED, improved to 0.8 following IVF Status: Acute (2) Dysarthria: Problem comment: Resolved prior to arrival to the floor. Tele neurology consulted, note as above #1 Status: Acute (3) Methamphetamine use: Problem comment: > 20 years. Previous history of cocaine use Status: Acute (4) Bipolar disorder: Problem comment: Not currently on any medications Status: Acute (5) Tobacco use: Problem comment: Noted Status: Acute Plan Okay to discharge to home this afternoon, pending continued improvement. Outpatient follow-up with PCP, outpatient EEG, outpatient Neurology follow-up Total Time Spent Total Time Spent: Total time spent caring for the patient today was 70 minutes. This includes time spent for the visit reviewing the chart, time spent during the visit, time spent after the visit and documentation and planning in coordination of care.
[2024-03-04 11:53] LABS: Lactate* 0.8 mmol/L (0.5-1.9)
[2024-03-04 11:59] LABS: Creatine Kinase* 266 U/L (54-186)
[2024-03-04 12:14] LABS: Creatine Kinase* 217 U/L (54-186)
--- NOTE | 2024-03-04 14:57 | PC.NURSE ---
Pt alert and oriented. Pt had no complaints of pain. Pt had consult with neurology; see physician note. PT saw Pt and is up independently in room. Pt?s weakness on the left side has improved through the shift. Pt had no complaints of N/V, headache or dizziness. Pt is on a regular diet and tolerating well. Pt may be able to discharge this afternoon per hospitalist.?
--- NOTE | 2024-03-04 16:20 | PM.DS1 ---
DS: Providers Provider Date Seen: 03/04/24 Date of admission: 03/04/24 08:24 Primary care physician: Ken Richardson MD Admitting Clinician[facility] Consults: 03/04/24 10:32 Consult to Physical Therapy [CONS] Routine Comment: Reason(s) for PT Consult:: Evaluate and Treat Any Restrictions?:: No Restrictions Attending Phys[facility] on [facility] Date [facility] Discharge: 03/04/24 DS: Diagnosis Discharge Diagnosis (1) Ataxia: Status: Acute Problem details: Resolved prior to arrival to the floor Evaluated by tele neurology, Dr. Marques - suspected to be possible seizure activity in setting of active methamphetamine use and lack of sleep. Possibly postictal fatigue. Not recommending starting any anti-seizure medications at this time. Will need outpatient EEG and neuro consult which can be set up by his PCP. No driving for 3 months, pending further workup. CK mildly elevated at 266 on arrival to ED, improved to 217 following IVF, just outside of mild rhabdomyolysis Lactate 3.8 on arrival to ED, improved to 0.8 following IVF (2) Dysarthria: Status: Acute Problem details: Resolved prior to arrival to the floor. Tele neurology consulted, note as above #1 (3) Methamphetamine use: Status: Acute Problem details: > 20 years. Previous history of cocaine use (4) Bipolar disorder: Status: Acute Problem details: Not currently on any medications (5) Tobacco use: Status: Acute Problem details: Noted DS: Summary Hospital Course Hospital Course: [age] year old male was admitted to the medical floor for ataxia and dysarthria,resolved on arrival to the floor. Course of care and details as noted above. Tele neurology concern for seizure-like activity in setting of active meth use and sleep deprivation. Patient is advised not to drive for at least 3 months, pending further workup. Recommended not to start anti seizure medications at this time. Will need outpatient follow-up with PCP, outpatient EEG, outpatient Neurology consult to be scheduled by PCP. Remainder of chronic medical comorbidities were monitored and managed with home medications. Status at Discharge Functional status at discharge: independent ambulation Overall status at discharge: patient is back to baseline Time Spent with Patient Time attestation: Total time spent providing and/or coordinating discharge services: Time spent: Greater than 30 minutes Exam Narrative: Exam Narrative: PHYSICAL EXAM General: Pleasant, conversant, NAD Cardiovascular: RRR Pulmonary: No dyspnea Neurological: Alert, answering questions appropriately Skin: Warm, dry. Const: Vital Signs, click to edit/add: Vital Signs - 24 hr 03/04/24 04:39 03/04/24 05:45 03/04/24 05:46 Temperature 98.1 F Pulse Rate 73 69 Pulse Rate [Left P ulse Oximeter] 78 Pulse Rate [Pulse Oximeter] Respiratory Rate 16 Blood Pressure 148/84 H Blood Pressure [Ri ght Arm] Blood Pressure [Ri ght Upper Arm] 136/97 H Pulse Oximetry 98 98 Oxygen Delivery [facility] Room Air 03/04/24 05:51 03/04/24 06:00 03/04/24 06:02 Temperature Pulse Rate 76 77 77 Pulse Rate [Left P ulse Oximeter] Pulse Rate [Pulse Oximeter] Respiratory Rate Blood Pressure 147/82 H 131/80 Blood Pressure [Ri ght Arm] Blood Pressure [Ri ght Upper Arm] Pulse Oximetry 95 95 [facility] 03[facility] 06:12 03/04/24 06:17 03/04/24 06:23 Temperature Pulse Rate 76 77 81 Pulse Rate [Left P ulse Oximeter] Pulse Rate [Pulse Oximeter] Respiratory Rate Blood Pressure 134/82 132/93 H Blood Pressure [Ri ght Arm] Blood Pressure [Ri ght Upper Arm] Pulse Oximetry 98 97 98 [facility] 03/04/24 06:30 03/04/24 06:32 03/04/24 06:42 Temperature Pulse Rate 74 79 Pulse Rate [Left P ulse Oximeter] Pulse Rate [Pulse Oximeter] Respiratory Rate Blood Pressure 130/54 L 134/64 Blood Pressure [Ri ght Arm] Blood Pressure [Ri ght Upper Arm] Pulse Oximetry 96 97 [facility] 03/04/24 06:45 03/04/24 06:52 03/04/24 07:00 Temperature Pulse Rate 69 65 66 Pulse Rate [Left P ulse Oximeter] Pulse Rate [Pulse Oximeter] Respiratory Rate Blood Pressure 120/73 Blood Pressure [Ri ght Arm] Blood Pressure [Ri ght Upper Arm] Pulse Oximetry 96 94 97 [facility] 03[facility]04/24 07:02 03/04/24 07:12 03/04/24 07:15 Temperature Pulse Rate 65 68 67 Pulse Rate [Left P ulse Oximeter] Pulse Rate [Pulse Oximeter] Respiratory Rate Blood Pressure 127/75 104/73 Blood Pressure [Ri ght Arm] Blood Pressure [Ri ght Upper Arm] Pulse Oximetry 96 97 96 [facility] Delivery [facility] 03/04/24 07:22 03/04/24 07:30 03/04/24 07:32 Temperature Pulse Rate 68 69 67 Pulse Rate [Left P ulse Oximeter] Pulse Rate [Pulse Oximeter] Respiratory Rate Blood Pressure 157/74 H 137/90 H Blood Pressure [Ri ght Arm] Blood Pressure [Ri ght Upper Arm] Pulse Oximetry 98 97 96 [facility] 03/04/24 07:42 03/04/24 07:45 03/04/24 07:52 Temperature Pulse Rate 60 74 74 Pulse Rate [Left P ulse Oximeter] Pulse Rate [Pulse Oximeter] Respiratory Rate Blood Pressure 129/73 131/74 Blood Pressure [Ri ght Arm] Blood Pressure [Ri ght Upper Arm] Pulse Oximetry 96 98 96 [facility] 03/04/24 08:00 03/04/24 08:02 03/04/24 08:39 Temperature 98.1 F Pulse Rate 58 L 57 L Pulse Rate [Left P ulse Oximeter] Pulse Rate [Pulse Oximeter] 74 Respiratory Rate 18 Blood Pressure 123/70 Blood Pressure [Ri ght Arm] 124/90 H Blood Pressure [Ri ght Upper Arm] Pulse Oximetry 91 93 98 [facility] 03/04/24 11:10 Temperature 98.7 F Pulse Rate Pulse Rate [Left P ulse Oximeter] Pulse Rate [Pulse Oximeter] 66 Respiratory Rate 16 Blood Pressure Blood Pressure [Ri ght Arm] 129/86 Blood Pressure [Ri ght Upper Arm] Pulse Oximetry 99 [facility] DS: Data Data Completed and Pending Labs on day of discharge: Labs from last 24 hours 03/04/24 03/04/24 03/04/24 11:50 07:20 05:10 WBC 9.66 RBC 5.11 Hgb 15.2 Hct 43.2 MCV 85 MCH 30 MCHC 35 RDW Coeff of Domenica 13.1 Plt Count 409 Neut % (Auto) 43.1 Lymph % (Auto) 44.3 H Bacon % (Auto) 9.0 Eos % (Auto) 2.5 Baso % (Auto) 1.0 Neut # (Auto) 4.16 Lymph # (Auto) 4.30 H Bacon # (Auto) 0.90 Eos # (Auto) 0.24 Baso # (Auto) 0.10 Abs Immat Gran (auto) 0.01 Imm/Tot Granulo (auto) 0.1 Sodium 136 Potassium 3.4 L Chloride 105 Carbon Dioxide 17 L Anion Gap 14 BUN 15 Creatinine 0.6 Estimated Creat Clear 168.98 Estimated GFR 125 Glucose 98 Lactate 0.8 3.8 H Calcium 10.0 Total Bilirubin 0.7 AST 39 H ALT 40 Alkaline Phosphatase 63 Ammonia 9.0 L Total Creatine Kinase 217 H 266 H C-Reactive Protein < 0.5 L Total Protein 7.9 Albumin 5.0 Procalcitonin 0.05 Urine Color Yellow Urine Appearance Clear Urine pH 7.0 Ur Specific Donald 1.010 Urine Protein Negative Urine Glucose (UA) Negative Urine Ketones Negative Urine Blood Negative Urine Nitrite Negative Urine Bilirubin Negative Urine Urobilinogen 0.2 Ur Leukocyte Esterase Negative Urine Opiates Screen Negative Ur Oxycodone Screen Negative Urine Methadone Screen Negative Ur Barbiturates Screen Negative U Tricyclic Antidepress Negative Ur Phencyclidine Scrn Negative Ur Amphetamines Screen POSITIVE A U Methamphetamines Scrn POSITIVE A U Benzodiazepines Scrn Negative Urine Cocaine Screen Negative U Marijuana (THC) Screen Negative Ur Drug Screen Comment See Note Ethyl Alcohol < 0.01 L Lab Acknowledgement Test Added Discharge Plan Discharge Disposition: Home, Self-Care Date of Admission: 03/04/24 08:24 Attending Provider on Discharge: Blessing Edwards Primary Care Provider: Ken Richardson Condition: Stable Anticipated Discharge Date/Time: 03/04/24 16:07 Discharge Medications: No Action No Known Home Medications Discharge Orders: Discharge Order (Routine); Ordered 03/04/24 Ordered By: Blessing Edwards Patient Education: Methamphetamine Use Disorder (GEN) Additional Instructions: DO NOT DRIVE FOR AT LEAST 3 MONTHS -PENDING FURTHER WORKUP YOU WILL NEED OUTPATIENT FOLLOW UP WITH YOUR PCP WHO CAN SCHEDULE YOU FOR AN EEG AND NEUROLOGY CONSULT. Activity Level: No Restrictions Discharge Diet: Regular Follow Up Appointments: Provider,Not a Local [Non-Staff] - Ken Richardson MD [Primary Care Provider] - (Post hospital follow-up 3-5 days) Forms: Datappraise Info Instructions
--- NOTE | 2024-03-04 20:13 | PC.NURSE ---
Discharge: Patient pleasant and cooperative, A&O. VSS, afebrile. Denies pain this shift. IV removed with tip intact. Discharge instructions provided, all questions answered. Discharge to home at 1847.
== END 2024-03-04 18:47 | disposition home or self-care (01) ==
LOC: ED 07:50 → MEDSURG 08:24
PROVIDERS: Admitting Provider Family Medicine; Emergency Provider Family Medicine; PCP Family Medicine; Visit Provider Physician Assistant
DX: R27.0 Ataxia, unspecified (principal); R47.1 Dysarthria and anarthria; F15.10 Other stimulant abuse, uncomplicated; F31.9 Bipolar disorder, unspecified; F17.210 Nicotine dependence, cigarettes, uncomplicated
CPT/HCPCS: 36415; 70450; 70496; 70498; 70551; 80053; 80306; 81003; 82077; 82140; 82550; 83605; 84145; 85025; 86140; 97116; 97161; 99284; 99285; A9270; G0378; J7030; Q9967